=== PATIENT | female | born 1990 | race Caucasian/White ===

== ENCOUNTER 2016-05-28 11:08 | Inpatient (IN) | payer OTHER ==
[2016-05-28] VITALS (14 sets, daily range): BP systolic 12–117; BP diastolic 56–71; PULSE 79–104; TEMP 98–98.5
[~2016-05-28] VITALS: Ht 162.6 cm; Wt 65.5 kg
[2016-05-28] MEDS ORDERED: NEXIUM24HROTC PO (12:27)
[2016-05-28] MEDS ORDERED: FOLIC ACID 11 MG/TA1 PO (12:28)
[2016-05-28] MEDS ORDERED: PRENATAL FORMU1 EAC3 PO (12:28)
[2016-05-28] MEDS ORDERED: MASON NATURAL2000 IU PO (12:29)
[2016-05-28] MEDS ORDERED: NORCO 325 MG-51 TAB PO (12:31)
[2016-05-28] MEDS ORDERED: VITAMIN D 50,1.25 MG PO (12:31)
[2016-05-29 05:40] VITALS: BP 97/50; PULSE 75; TEMP 98.5
[2016-05-29 07:00] VITALS: BP 104/53; PULSE 79; TEMP 97.8
[2016-05-29 11:50] VITALS: BP 106/52; PULSE 74; TEMP 98
[2016-05-29 15:30] VITALS: BP 108/59; PULSE 81; TEMP 98.9
[2016-05-29 20:00] VITALS: BP 105/68; PULSE 91; TEMP 98
[2016-05-30] VITALS: BP 96/58; PULSE 82; TEMP 98.5
[2016-05-30 07:00] VITALS: BP 95/58; PULSE 82; TEMP 98.2
[2016-05-30 13:30] VITALS: BP 102/60; PULSE 96; TEMP 97.9
[2016-05-30 15:59] VITALS: BP 98/55; PULSE 89; TEMP 98.4
[2016-05-30 20:25] VITALS: BP 97/59; PULSE 87; TEMP 98.3
[2016-05-31 07:50] VITALS: BP 101/56; PULSE 94; TEMP 98.4
== END 2016-05-31 10:30 | disposition home or self-care (01) | DRG 781 ==
LOC: SDCO 11:08 → OB 15:40 → SDCO 05-30 04:32 → OB 05-30 04:32
PROVIDERS: Urology
PROC: 0T768DZ Dilation of Right Ureter with Intraluminal Device, Via Natural or Artificial Opening Endoscopic (ICD-10-PCS; principal; 2016-05-28 14:15)
DX: O26.832 Pregnancy related renal disease, second trimester (principal); N13.2 Hydronephrosis with renal and ureteral calculous obstruction; O30.042 Twin pregnancy, dichorionic/diamniotic, second trimester; Z3A.25 25 weeks gestation of pregnancy; Z91.041 Radiographic dye allergy status
CPT/HCPCS: OP; C1769; C2617; J0690; J1940; J2270; J2405; J3105; Q9967

== ENCOUNTER 2016-06-02 16:55 | Inpatient (IN) | payer OTHER ==
[~2016-06-02] VITALS: Ht 157.5 cm; Wt 145.0 kg
[~2016-06-02 16:55] MED LIST: FOLIC ACID 11 MG/TA1 PO; MASON NATURAL2000 IU PO; NEXIUM24HROTC PO; NORCO 325 MG-51 TAB PO; PRENATAL FORMU1 EAC3 PO; VITAMIN D 50,1.25 MG PO
[2016-06-02 17:38] LABS: BASO % 0.4 % (0.0-2.0); EOS # 0.3 (0.0-0.7); EOS % 3.2 % (0-4.0); GRAN # 6.8 (1.4-6.5); GRAN % 70.3 % (42.2-75.2); LYMPH # 1.9 (1.2-3.4); MEAN CELL VOLUME 95 fl (80.0-100.0); MEAN CORPUSCULAR HGB CONC 33 g/dl (33.0-37.0); MEAN PLATELET VOLUME 9.8 fl (7.4-10.4); MONO # 0.5 (0.1-0.6); MONO % 5.5 % (1.7-9.3); PLATELET COUNT 206 K/mm3 (130-400); RED BLOOD COUNT 3.36 M/mm3 (4.10-5.30); REDCELL DISTRIBUTION WIDTH-CV 13.2 % (11.5-14.5); WHITE BLOOD COUNT 9.7 K/mm3 (4.8-10.8)
[2016-06-02 17:40] LABS: HEMOGLOBIN 10.7 g/dl (12.5-16.0); MEAN CORPUSCULAR HEMOGLOBIN 32 pg (27.0-31.0)
[2016-06-02 17:43] LABS: ADJUSTED CALCIUM 9.7 mg/dL (8.4-10.2); ALBUMIN 3.7 gm/dL (3.5-5.0); BILIRUBIN,TOTAL 0.6 mg/dL (0.0-1.0); CALCIUM 9.5 mg/dL (8.4-10.2); CREATININE, serum 0.51 mg/dL (0.52-1.25); POTASSIUM 3.7 mmol/L (3.4-5.0); TOTAL PROTEIN 7.2 gm/dL (6.4-8.2)
[2016-06-02 17:49] LABS: PH 6 (5-8); URINE APPEARANCE Hazy; URINE BACTERIA None Seen /hpf; URINE BILIRUBIN Negative (NEGATIVE); URINE BLOOD 3+ (NEGATIVE); URINE COLOR Amber; URINE GLUCOSE Negative (NEGATIVE); URINE KETONE Negative (NEGATIVE); URINE RBC >50 /hpf; URINE UROBILINOGEN >=4.0 mg/dL (NEGATIVE); URINE WBC 20-50 /hpf
[2016-06-02 20:00] VITALS: BP 98/56; PULSE 88
[2016-06-02 21:00] VITALS: BP 99/51; PULSE 80
[2016-06-02] MEDS ORDERED: CEPHALEXIN250 M1 PO (21:09)
[2016-06-02 21:10] VITALS: BP 96/60; PULSE 85; TEMP 98.5
[2016-06-02] MEDS ORDERED: PYRIDIUM 100MG100 MG PO (21:10)
[2016-06-02 22:00] VITALS: BP 95/51; PULSE 96
[2016-06-02 23:00] VITALS: BP 95/57; PULSE 95
[2016-06-03] VITALS (7 sets, daily range): BP systolic 87–96; BP diastolic 47–56; PULSE 81–99; TEMP 98.1
[2016-06-04 03:31] VITALS: BP 94/53; PULSE 94
[2016-06-04 09:20] VITALS: BP 103/63; PULSE 93; TEMP 98.5
[2016-06-04 12:30] VITALS: BP 98/57; PULSE 90; TEMP 98.6
== END 2016-06-04 15:25 | disposition short-term general hospital (02) | DRG 781 ==
LOC: COL.ER 16:55 → OB 18:03
PROVIDERS: Family Medicine
DX: O26.892 Other specified pregnancy related conditions, second trimester (principal); R10.31 Right lower quadrant pain; O30.042 Twin pregnancy, dichorionic/diamniotic, second trimester; Z91.041 Radiographic dye allergy status; Z3A.25 25 weeks gestation of pregnancy; Z84.1 Family history of disorders of kidney and ureter; Z87.442 Personal history of urinary calculi
CPT/HCPCS: J2270; J2405; J2550; J7030